=== PATIENT | female | born 1950 | race Caucasian/White ===

== ENCOUNTER 2017-11-01 11:41 | Day surgery (SDC) | payer OTHER ==
[2017-11-01] MEDS ORDERED: Lactated Ringer's 500 ML IV ONE (12:01)
[2017-11-01] MEDS ORDERED: Propofol 10 mg/ml Inj (20 ML) ONE (13:27)
[2017-11-01 13:55] VITALS: TEMP 97.4; O2SAT 97
[2017-11-01 14:11] VITALS: BP 144/73; PULSE 69; RESP 16
== END 2017-11-01 13:00 | disposition home or self-care (01) ==
LOC: H.ENDO 11:41
PROVIDERS: ATTEND Internal Medicine Gastroenterology
DX: K92.1 Melena (principal); K62.89 Other specified diseases of anus and rectum; K57.30 Diverticulosis of large intestine without perforation or abscess without bleeding; K64.0 First degree hemorrhoids
CPT/HCPCS: 45380; 82948; 88305; J2001; J2704; J7120